=== PATIENT | female | born 1980 | race Caucasian/White ===

== ENCOUNTER → 2023-09-05 06:53 | Outpatient (REF) | payer BC, SELFPAY | LOC: PNTC 06:53 | PROVIDERS: ATTENDING PHYSICIAN Obstetrics & Gynecology | DX: O09.529 Supervision of elderly multigravida, unspecified trimester (principal); O99.210 Obesity complicating pregnancy, unspecified trimester; O09.819 Supervision of pregnancy resulting from assisted reproductive technology, unspecified trimester | CPT/HCPCS: 76811 ==

== ENCOUNTER 2023-09-22 09:38 | Observation (INO) | payer BC, SELFPAY ==
[2023-09-22 10:31] LABS: % Basophils 0.4 % (0-2); % Eosinophils 1.1 % (0-6); % Immature Granulocytes 0.7 % (0-0.5); % Lymphocytes 19.1 % (20.5-51.1); % Monocytes 6.5 % (1.7-9.3); % Neutrophils 72.2 % (42.2-75.2); Absolute Basophils 0.1 10^3/uL (0-0.2); Absolute Eosinophils 0.1 10^3/uL (0-0.7); Absolute Immature Granulocytes 0.1 10^3/uL (0-0.05); Absolute Lymphocytes 2.2 10^3/uL (1.2-3.4); Absolute Monocytes 0.7 10^3/uL (0.1-0.6); Absolute Neutrophils 8.2 10^3/uL (1.4-6.5); Hematocrit 37.5 % (37.0-47.0); Hemoglobin 13.2 g/dL (12.0-16.0); Mean Corp Hgb Conc. 35.2 g/dL (33.0-37.0); Mean Corpuscular Hgb 30.1 pg (27.0-31.0); Mean Corpuscular Volume 85.6 fL (81.0-99.0); Mean Platelet Volume 10.9 fL (7.4-10.4); Nucleated Red Blood Cells % 0 %; Platelet Count 187 10^3/uL (130-400); Red Blood Cell Count 4.38 10^6/uL (4.20-5.40); Red Cell Dist. Width 12.8 % (11.5-14.5); White Blood Cell Count 11.3 10^3/uL (4.8-10.8)
[2023-09-22 10:45] LABS: ALT (SGPT) 25 U/L (0-35); AST (SGOT) 27 U/L (14-36); Albumin 3.4 g/dl (3.5-5.0); Alkaline Phosphatase 67 U/L (38-126); Blood Urea Nitrogen 7 mg/dl (7-17); Calcium 8.9 mg/dl (8.4-10.2); Carbon Dioxide 24 mmol/L (22-30); Chloride 106 mmol/L (98-107); Glucose 79 mg/dl (70-99); Potassium 3.9 mmol/L (3.5-5.1); Sodium 135 mmol/L (135-145); Total Bilirubin 0.4 mg/dl (0.2-1.3); eGFR > 60.00
[2023-09-22 11:03] VITALS: BP 137/57; BMI 35.5
[2023-09-22 11:11] LABS: Protein/creatinine Ratio 0.2; Urine Protein 15 mg/dl
== END 2023-09-22 11:30 | disposition home or self-care (01) ==
LOC: PNTC-IN 09:38
PROVIDERS: Obstetrics & Gynecology; ADMITTING PHYSICIAN Obstetrics & Gynecology
DX: O16.2 Unspecified maternal hypertension, second trimester (principal); Z3A.23 23 weeks gestation of pregnancy
CPT/HCPCS: 80053; 82570; 84156; 85025; G0378

== ENCOUNTER → 2023-10-04 07:19 | Outpatient (REF) | payer BC, SELFPAY | LOC: PNTC 07:19 | PROVIDERS: ATTENDING PHYSICIAN Obstetrics & Gynecology | DX: O99.210 Obesity complicating pregnancy, unspecified trimester (principal); O09.819 Supervision of pregnancy resulting from assisted reproductive technology, unspecified trimester | CPT/HCPCS: 76816 ==

== ENCOUNTER → 2023-10-06 08:50 | Outpatient (REF) | payer BC, SELFPAY ==
--- NOTE | 2023-10-06 10:05 | PN.DIAED06 ---
Meal Plan - Gestational
- Breakfast
Gestational Diabetes Meal Plan Name: 1800 calories
Breakfast - Total Carbohydrate (grams): 30
Breakfast - Starch Carbohydrate: 1
Breakfast - Fruit Carbohydrate: 0
Breakfast - Milk Carbohydrate: 1
Breakfast - Nonstarchy Vegetables: Yes
Breakfast - Meat/Protein: 1
Breakfast - Fat: 2
- Morning Snack
Morning Snack - Total Carbohydrate (grams): 30
Morning Snack - Starch Carbohydrate: 1
Morning Snack - Fruit Carbohydrate: 0
Morning Snack - Milk Carbohydrate: 1
Morning Snack - Nonstarchy Vegetables: Yes
Morning Snack - Meat/Protein: 0.5
Morning Snack - Fat: 0
- Lunch
Lunch - Total Carbohydrate (grams): 45
Lunch - Starch Carbohydrate: 2
Lunch - Fruit Carbohydrate: 1
Lunch - Milk Carbohydrate: 0
Lunch - Nonstarchy Vegetables: Yes
Lunch - Meat/Protein: 2
Lunch - Fat: 1
- Afternoon Snack
Afternoon Snack - Total Carbohydrate (grams): 30
Afternoon Snack - Starch Carbohydrate: 1
Afternoon Snack - Fruit Carbohydrate: 1
Afternoon Snack - Milk Carbohydrate: 0
Afternoon Snack - Nonstarchy Vegetables: Yes
Afternoon Snack - Meat/Protein: 1
Afternoon Snack - Fat: 0
- Dinner
Dinner - Total Carbohydrate (grams): 45
Dinner - Starch Carbohydrate: 2
Dinner - Fruit Carbohydrate: 0
Dinner - Milk Carbohydrate: 1
Dinner - Nonstarchy Vegetables: Yes
Dinner - Meat/Protein: 2
Dinner - Fat: 2
- Evening Snack
Evening Snack - Total Carbohydrate (grams): 30
Evening Snack - Starch Carbohydrate: 1
Evening Snack - Fruit Carbohydrate: 0
Evening Snack - Milk Carbohydrate: 1
Evening Snack - Nonstarchy Vegetables: Yes
Evening Snack - Meat/Protein: 1
Evening Snack - Fat: 1
--- NOTE | 2023-10-06 10:32 | PN.DIAED02 ---
Referral
Referred For: Gestational Diabetes Self-Management Training
PHI Release Authorization Form Signed: Yes
Demographic
(1) Gestational diabetes
Status: Acute Code(s): O24.419 - Gestational diabetes mellitus in , unspecified control
Patient's primary language-: Slovak
Care Plan
- Education Needs
Patient Education Needs: Preconception care//gestational diabetes management
Recommended Diabetes Training Program based on assessment: Gestational Diabetes Management
- Plan of Care
Plan of Care:
Ericka in today for new diagnosis GDM, OGTT 10/03/23 results FBS 117 mg/dl, 1 hr 239 mg/dl, 2 hr 203 mg/dl and 3 hr 128 mg/dl. EDC 01/19/24, sex unknown, IVF after 12 egg retrievals, 3 failed transfer, a miscarriage. Discussed normal glucose metabolism
and the effects /placenta have on this metabolism. She has family history T2DM as well as thyroid disorder, she is aware that having GDM puts her at risk for developing T2DM in the future. Ericka was having difficulty with her insurance in
regards to the preferred glucometer and states she will pay out of pocket. Provided with and instructions given on Contour Next EZ glucometer. Suggest that she compare cost of the test strips for the Contour Next with the [facility] Reli On and get the
one that is most cost effective. Excellent return demonstration with result of 146 mg/dl 2 hr post breakfast of whole grain cereal w/almond milk, coffee w/almond milk creamer.To test blood sugar, FBS and 2 hr pp every meal with expected results of
FBS <95 mg/dl, 2 hr pp <120 mg, if testing 1 hr pp <140 mg/dl. TO call results to Cecy at [facility] every Tuesday, phone number and log sheet provided. Discussed macronutrients and effect each has on BS. Provided w/ 1800 jessica ADA GDM meal
plan and discussed current eating habits. She makes healthy choices and follow a Mediterranean diet for the most part. There are some meals where she will need to consume additional carb, discussed adding fruit or starch to evening meal. Reviewed
reading food labels for the CHO content in regards to serving size. Handout on snack options and 'Choose your food' booklet provided. She is aware to hold off consuming fruit until noon, rationale given.She currently walks 30 minutes every day.
Prior to her IVF journey, she was a runner and looks forward to getting back into her prior health status. Ericka is aware to contact me with any questions or if insulin in required. No need to call in RX as she will be paying out of pocket.
== END ==
LOC: DES 08:50
PROVIDERS: ATTENDING PHYSICIAN Obstetrics & Gynecology
DX: O24.419 Gestational diabetes mellitus in pregnancy, unspecified control (principal)
CPT/HCPCS: 99078

== ENCOUNTER → 2023-10-13 10:00 | Outpatient (REF) | payer BC, SELFPAY ==
--- NOTE | 2023-10-17 17:07 | PTCARENOTE ---
Ericka in today 10/13/23 for insulin instructions, all FBS elevated (100-117 mg/dl) as well as 50% of post meal results (124-146)are elevated. To start NPH 6 units with breakfast and NPH 10 units at HS. Discussed onset, peak and duration as well as
symptoms and treatment of hypoglycemia. Instructions with good practice return demonstration using insulin pen. Aware to gently mix insulin pen, clean top of pen, attach needle, prime, reset to zero, dial dose , inject and hold in place for a count
of 10. To inject in outer thigh. Recommend testing tonight at [id number] to assess for hypoglycemia. Ericka may require and has picked up Humalog insulin, she will hold starting this until she speaks with Cecy on Tuesday11/17/23. Discussed onset, peak
and duration of rapid acting insulin with best practice to test blood sugar, inject Humalog and eat in 15 minutes. She feels comfortable injecting herself and will do what ever she needs.
== END ==
LOC: DES 10:00
PROVIDERS: ATTENDING PHYSICIAN Obstetrics & Gynecology
DX: O24.419 Gestational diabetes mellitus in pregnancy, unspecified control (principal)
CPT/HCPCS: 99078

== ENCOUNTER → 2023-11-01 07:16 | Outpatient (REF) | payer BC, SELFPAY | LOC: PNTC 07:16 | PROVIDERS: ATTENDING PHYSICIAN Obstetrics & Gynecology | DX: O09.819 Supervision of pregnancy resulting from assisted reproductive technology, unspecified trimester (principal); O99.210 Obesity complicating pregnancy, unspecified trimester | CPT/HCPCS: 76816 ==

== ENCOUNTER 2023-11-25 11:12 | Inpatient (IN) | payer BC, SELFPAY ==
[2023-11-25 11:52] LABS: % Basophils 0.4 % (0-2); % Eosinophils 1.2 % (0-6); % Immature Granulocytes 0.5 % (0-0.5); % Lymphocytes 17.9 % (20.5-51.1); % Monocytes 7.1 % (1.7-9.3); % Neutrophils 72.9 % (42.2-75.2); Absolute Eosinophils 0.1 10^3/uL (0-0.7); Absolute Immature Granulocytes 0.1 10^3/uL (0-0.05); Absolute Monocytes 0.8 10^3/uL (0.1-0.6); Absolute Neutrophils 8.1 10^3/uL (1.4-6.5); Hematocrit 38.1 % (37.0-47.0); Hemoglobin 13.5 g/dL (12.0-16.0); Mean Corp Hgb Conc. 35.4 g/dL (33.0-37.0); Mean Corpuscular Hgb 30.6 pg (27.0-31.0); Mean Corpuscular Volume 86.4 fL (81.0-99.0); Mean Platelet Volume 11.1 fL (7.4-10.4); Nucleated Red Blood Cells % 0 %; Platelet Count 180 10^3/uL (130-400); Red Blood Cell Count 4.41 10^6/uL (4.20-5.40); Red Cell Dist. Width 13.1 % (11.5-14.5); White Blood Cell Count 11.1 10^3/uL (4.8-10.8)
[2023-11-25 12:07] LABS: ALT (SGPT) 31 U/L (0-35); AST (SGOT) 38 U/L (14-36); Albumin 3.6 g/dl (3.5-5.0); Alkaline Phosphatase 96 U/L (38-126); Blood Urea Nitrogen 11 mg/dl (7-17); Calcium 9.9 mg/dl (8.4-10.2); Carbon Dioxide 24 mmol/L (22-30); Chloride 107 mmol/L (98-107); Glucose 72 mg/dl (70-99); Sodium 135 mmol/L (135-145); Total Bilirubin 0.4 mg/dl (0.2-1.3); Total Protein 6.3 g/dl (6.3-8.2); Uric Acid 6.2 mg/dl (2.5-6.2); eGFR > 60.00
[2023-11-25] MEDS: APRESOLINE 10 MG IV ×2 (12:29→13:04)
[2023-11-25 12:33] VITALS: BP 160/81; BMI 37.4
[2023-11-25 12:59] LABS: Urine Albumin Negative (Neg - Trace); Urine Bilirubin Negative (Negative); Urine Character Clear (Clear); Urine Color Yellow; Urine Glucose Negative (Negative); Urine Ketone 1+ (Negative); Urine Leukocyte Negative (Negative); Urine Nitrite Negative (Negative); Urine Occult Blood Negative (Negative); Urine Specific Gravity 1.015 (<1.030); Urine Urobilinogen Negative (Neg - 1+); Urine pH 6.5 (5.0-9.0)
[2023-11-25 13:22] LABS: Protein/creatinine Ratio 0.3; Urine Protein 23 mg/dl
[2023-11-25] MEDS: MAGNESIUM SULFATE 100 IV (13:51)
[2023-11-25] MEDS: MAGNESIUM SULFATE 40 GRAM 1000 IV (14:16)
[2023-11-25] MEDS: PROCARDIA XL (EXTENDED RELEASE) 30 MG PO (14:16)
[2023-11-25] MEDS: CELESTONE SOLUSPAN 2 MG IM (14:29)
--- NOTE | 2023-11-25 15:15 | CON.NEO ---
Consultation
-
Date/Time Consultation Requested: 11/25/2023 @1400
Date/Time Consultation Performed: 11/25/2023 @1445
Requesting Provider: Toro Herring
Performing Provider: Jenny Asher
Reason for Consultation: Pre-e
Consultation - Neonatology
Maternal Labs
Blood Type: A Positive
Antibody Screen: Negative
RPR: Nonreactive
Rubella: Immune
Hep B S Ag: Negative
Hep C: Negative
HIV: Nonreactive
Group B Strep: Unknown
Chlamydia/GC: Negative
Consult
43 year old admitted for HTN.
Past history significant for karine's thyroiditis, GDM on insulin, IVF .
Mother currently on magnesium, received hydralazine and one dose of betamethasone.
Mother plans on .
Sex of is unknown.
Mother only was present for the consult. Mother aware that if FOB has questions, I can return to discuss.
Points discussed at consult:
- Management at delivery including the possibility of CPAP/intubation/surfactant discussed
- Respiratory: RDS possibility with possibility of worsening for 24-48 hrs, management including CPAP/surfactant/ventilator support may be required
- Nutrition: Hypoglycemia, need for IV fluids, gradual feed advance, Gavage feeding, importance of colostrum feeding, initiation of expression of colostrum within 3-4 hours, availability of donor milk, safety fo donor milk etc. were discussed.
- Procedures: Intubation, CPAP, IV placement, blood tests, umbilical arterial or venous lines, gavage feedings were discussed
- CVS: possibility of PDA not discussed in detail at this time
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
- Jaundice possibility and need for phototherapy discussed
- Family Centered Care: Discussed FCC with emphasis on parental participation during sign off and during management rounds and is encouraged. Availability of james eyes camera also discussed
Mom was given the opportunity to ask questions throughout and open invitation to call if any questions come as they absorb all the information given so far.
Mother is hopeful to continue until 35 weeks.
Face to Face Time
Total [id number] Time (in Minutes): 30
Attending Package Pick Up: Jenny Asher MD
Package Pick Up
[2023-11-25 15:23] LABS: Glucose - Point of Care 79 mg/dl (70-99)
[2023-11-25] MEDS: LR 1000 IV (15:28)
[2023-11-25] MEDS: KCL 1010 MEQ IV (15:48)
[2023-11-25 17:34] LABS: Glucose - Point of Care 130 mg/dl (70-99)
[2023-11-25 20:26] LABS: Glucose - Point of Care 194 mg/dl (70-99)
[2023-11-25] MEDS: HUMULIN N KWIKPEN 16 UNITS SC (21:58)
[2023-11-25 22:00] LABS: Glucose - Point of Care 189 mg/dl (70-99)
[2023-11-26] MEDS: TYLENOL 650 MG PO (01:01)
[2023-11-26] MEDS: KCL 1010 MEQ IV (05:18)
[2023-11-26] MEDS: SYNTHROID 50 MCG PO (05:33)
[2023-11-26 05:34] LABS: Glucose - Point of Care 189 mg/dl (70-99)
[2023-11-26] MEDS: HUMULIN N KWIKPEN 6 UNITS SC (05:39)
[2023-11-26 05:47] LABS: Hematocrit 37.9 % (37.0-47.0); Hemoglobin 13.3 g/dL (12.0-16.0); Mean Corp Hgb Conc. 35.1 g/dL (33.0-37.0); Mean Corpuscular Hgb 30.6 pg (27.0-31.0); Mean Corpuscular Volume 87.3 fL (81.0-99.0); Mean Platelet Volume 11.1 fL (7.4-10.4); Platelet Count 200 10^3/uL (130-400); Red Blood Cell Count 4.34 10^6/uL (4.20-5.40); Red Cell Dist. Width 13.2 % (11.5-14.5); White Blood Cell Count 14.7 10^3/uL (4.8-10.8)
[2023-11-26 06:10] LABS: ALT (SGPT) 30 U/L (0-35); AST (SGOT) 32 U/L (14-36); Albumin 3.4 g/dl (3.5-5.0); Alkaline Phosphatase 107 U/L (38-126); Blood Urea Nitrogen 8 mg/dl (7-17); Calcium 7.7 mg/dl (8.4-10.2); Carbon Dioxide 19 mmol/L (22-30); Chloride 107 mmol/L (98-107); Estimated Creatinine Clearance > 125 ml/min; Glucose 178 mg/dl (70-99); Potassium 3.3 mmol/L (3.5-5.1); Sodium 132 mmol/L (135-145); Total Bilirubin 0.4 mg/dl (0.2-1.3); Total Protein 6.1 g/dl (6.3-8.2); eGFR > 60.00
[2023-11-26] MEDS: MAGNESIUM SULFATE 40 GRAM 1000 IV (08:30)
[2023-11-26] MEDS: PRENATAL PLUS 1 TABLET PO (08:30)
[2023-11-26] MEDS: LOW STRENGTH ASPIRIN 81 MG PO (08:30)
[2023-11-26 09:42] LABS: Glucose - Point of Care 228 mg/dl (70-99)
[2023-11-26 11:02] LABS: Glucose - Point of Care 196 mg/dl (70-99)
[2023-11-26] MEDS: NOVOLOG FLEXPEN-LOW RESISTANCE 1 UNITS SC (11:12)
[2023-11-26] MEDS: CELESTONE SOLUSPAN 2 MG IM (14:18)
[2023-11-26] MEDS: PROCARDIA XL (EXTENDED RELEASE) 30 MG PO (14:18)
[2023-11-26] MEDS: NOVOLOG FLEXPEN 6 UNITS SC (14:30)
[2023-11-26 14:35] LABS: Glucose - Point of Care 245 mg/dl (70-99)
[2023-11-26 18:05] LABS: Glucose - Point of Care 275 mg/dl (70-99)
[2023-11-26] MEDS: NOVOLOG FLEXPEN 10 UNITS SC (18:10)
[2023-11-26] MEDS: NOVOLOG FLEXPEN-LOW RESISTANCE SC (18:24)
[2023-11-26 20:04] LABS: Glucose - Point of Care 288 mg/dl (70-99)
[2023-11-26] MEDS: NOVOLOG FLEXPEN 8 UNITS SC (21:02)
[2023-11-26 22:08] LABS: Glucose - Point of Care 280 mg/dl (70-99)
[2023-11-26] MEDS: HUMULIN N KWIKPEN 18 UNITS SC (22:30)
[2023-11-27] MEDS: TYLENOL 650 MG PO ×2 (02:07→19:46)
[2023-11-27] MEDS: COMPAZINE 10 MG IV (04:12)
[2023-11-27] MEDS: BENADRYL 50 MG PO (04:12)
[2023-11-27 04:19] LABS: Glucose - Point of Care 215 mg/dl (70-99)
[2023-11-27 04:20] LABS: Hematocrit 32.9 % (37.0-47.0); Hemoglobin 12.1 g/dL (12.0-16.0); Mean Corp Hgb Conc. 36.8 g/dL (33.0-37.0); Mean Corpuscular Hgb 30.9 pg (27.0-31.0); Mean Corpuscular Volume 84.1 fL (81.0-99.0); Mean Platelet Volume 11.5 fL (7.4-10.4); Platelet Count 196 10^3/uL (130-400); Red Blood Cell Count 3.91 10^6/uL (4.20-5.40); Red Cell Dist. Width 13.5 % (11.5-14.5); White Blood Cell Count 18.1 10^3/uL (4.8-10.8)
[2023-11-27 04:42] LABS: ALT (SGPT) 23 U/L (0-35); AST (SGOT) 25 U/L (14-36); Albumin 3.2 g/dl (3.5-5.0); Alkaline Phosphatase 100 U/L (38-126); Blood Urea Nitrogen 9 mg/dl (7-17); Calcium 8.1 mg/dl (8.4-10.2); Carbon Dioxide 20 mmol/L (22-30); Chloride 109 mmol/L (98-107); Estimated Creatinine Clearance > 125 ml/min; Glucose 204 mg/dl (70-99); Potassium 3.3 mmol/L (3.5-5.1); Sodium 135 mmol/L (135-145); Total Bilirubin 0.4 mg/dl (0.2-1.3); Total Protein 5.8 g/dl (6.3-8.2); eGFR > 60.00
[2023-11-27] MEDS: SYNTHROID 50 MCG PO (05:49)
[2023-11-27] MEDS: HUMULIN N KWIKPEN 8 UNITS SC ×2 (05:52→09:48)
[2023-11-27 05:53] LABS: Glucose - Point of Care 203 mg/dl (70-99)
[2023-11-27 06:09] LABS: Magnesium 2.5 mg/dl (1.6-2.3); Phosphorus 2.9 mg/dl (2.5-4.5)
[2023-11-27] MEDS: NOVOLOG FLEXPEN 8 UNITS SC (07:13)
[2023-11-27] MEDS: NOVOLOG FLEXPEN-LOW RESISTANCE SC (07:17)
[2023-11-27] MEDS: HUMULIN N KWIKPEN SC (07:17)
[2023-11-27] MEDS: LOW STRENGTH ASPIRIN 81 MG PO (08:02)
[2023-11-27] MEDS: TYLENOL 1000 MG PO (08:02)
[2023-11-27] MEDS: PRENATAL PLUS 1 TABLET PO (08:02)
[2023-11-27 09:08] LABS: Glucose - Point of Care 248 mg/dl (70-99)
[2023-11-27] MEDS: TRANDATE 200 MG PO ×2 (09:48→19:49)
[2023-11-27 12:05] LABS: Glucose - Point of Care 192 mg/dl (70-99)
[2023-11-27] MEDS: NOVOLOG FLEXPEN 12 UNITS SC (12:07)
[2023-11-27 14:18] LABS: Glucose - Point of Care 215 mg/dl (70-99)
[2023-11-27] MEDS: NOVOLOG FLEXPEN 6 UNITS SC (14:28)
[2023-11-27 15:31] LABS: Glucose - Point of Care 199 mg/dl (70-99)
[2023-11-27 17:51] LABS: Glucose - Point of Care 238 mg/dl (70-99)
[2023-11-27] MEDS: NOVOLOG FLEXPEN SC (18:01)
[2023-11-27] MEDS: NOVOLOG FLEXPEN 16 UNITS SC (18:04)
[2023-11-27 20:11] LABS: Glucose - Point of Care 183 mg/dl (70-99)
[2023-11-27] MEDS: REGLAN 10 MG IV (20:58)
[2023-11-27] MEDS: HUMULIN N KWIKPEN 24 UNITS SC (22:04)
[2023-11-27 22:11] LABS: Glucose - Point of Care 211 mg/dl (70-99)
--- NOTE | 2023-11-27 22:57 | W.PN.UPDATE ---
Update Note
Progress Note Update
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
Throughout the day, pt has continued to have a mild MORELOS, mostly rated 2/10, frontal near right orbit. Has not had any visual sx or RUQ pain, CP or SOB.
She did get some improvement in the wee hours of this morning with Benadryl/compazine, but the benadryl made her feel jittery initially after receiving it.
BP med was switched from PRocardia XL to Labetalol 200mg BID this morning due to concern that that Procardia was contributing to her MORELOS. BPs have remained well controlled with systolics mostly in the normal range throughout the course of the day
(153 systolic only noted just at 1999 when patient was due for her Labetalol; once labetalol was received as scheduled, BP was 125/50s.
This evening, patient's MORELOS became a 4/10, but responded to Tylenol 650mg, coming back down to 2/10. Reglan 10mg IV was given subsequently, but did not make any further improvement in the MORELOS. Pt is admittedly exhausted and feels that is also a
contributing factor.
Labs were repeated this morning and were unremarkable.
Patient's exam has also remained unremarkable with normal neuro exam and DTRs +1 to +2.
FHT cat I.
Also, pt has A2GDM and glucose control has been challenging since administration of BTMZ for FLM. Goal has been to keep glucose <200, but we have struggled to do so. Multiple adjustments have been made in her insulin regimen, the latest orders are
for:
AM: 16units NPH, PM: 24units NPH, and 12u prior to each meal.
Due to glucose >200, in addition to the above, the patient did receive an extra 6units reg insulin after lunchtime and an additional 4units reg insulin prior to dinner.
Her postprandial glucose after dinner was 183 and her HS glucose was 211.
A/P 43yo at 32+3wks with
1) pre-eclampsia with severe features, based on severe range BPs at time of admission 11/24.
Mild MORELOS, no other symptoms. BPs well-controlled on LAbetalol 200mg BID. Tox labs unremarkable, other than urine pr:cr 0.3. Benign neuro exam.
FHT cat I.
Steroid complete, 11/27/23.
-Continue expectant mgmt with close monitoring for worsening sx, uncontrolled BPs despite intervention, significant lab findings or exam findings
-If delivery becomes indicated, will need to be as long as fetus remains breech
-venous foot pumps while in bed
-CEFM/toco for now
-Tylenol, reglan prn headache. Can also try Ambien 5mg to help pt with sleep (ordered)
-qAM labs
2) A2GDM:
Control challenging since BTMZ course
-Current insulin regimen: AM: 16units NPH, PM: 24units NPH, and 12u prior to each meal.
-Continue to adjust insulin regimen and use sliding scale as needed to achieve glucose <200
-Diabetic diet
I consulted with M, Dr. Bueno, this morning regarding patient management plan, and he was in agreement with above.
This evening, I spoke to him again about the patient's status, notably the patient's headache. He agrees to plan as outlined above.
Milly, DO
[2023-11-27] MEDS: AMBIEN 5 MG PO (23:05)
[2023-11-28] MEDS: TYLENOL 975 MG PO ×4 (05:18→23:39)
[2023-11-28 05:45] LABS: Glucose - Point of Care 108 mg/dl (70-99)
[2023-11-28] MEDS: SYNTHROID 50 MCG PO (05:49)
[2023-11-28] MEDS: FLEXERIL 5 MG PO (05:49)
[2023-11-28 05:57] LABS: Hematocrit 32.5 % (37.0-47.0); Hemoglobin 11.3 g/dL (12.0-16.0); Mean Corp Hgb Conc. 34.8 g/dL (33.0-37.0); Mean Corpuscular Hgb 30.2 pg (27.0-31.0); Mean Corpuscular Volume 86.9 fL (81.0-99.0); Platelet Count 176 10^3/uL (130-400); Red Blood Cell Count 3.74 10^6/uL (4.20-5.40); Red Cell Dist. Width 13.6 % (11.5-14.5); White Blood Cell Count 13.1 10^3/uL (4.8-10.8)
[2023-11-28 06:17] LABS: ALT (SGPT) 23 U/L (0-35); AST (SGOT) 24 U/L (14-36); Albumin 2.8 g/dl (3.5-5.0); Alkaline Phosphatase 79 U/L (38-126); Blood Urea Nitrogen 9 mg/dl (7-17); Calcium 8.3 mg/dl (8.4-10.2); Carbon Dioxide 24 mmol/L (22-30); Chloride 110 mmol/L (98-107); Estimated Creatinine Clearance > 125 ml/min; Glucose 101 mg/dl (70-99); Potassium 2.9 mmol/L (3.5-5.1); Sodium 136 mmol/L (135-145); Total Bilirubin 0.2 mg/dl (0.2-1.3); Total Protein 5.3 g/dl (6.3-8.2); eGFR > 60.00
[2023-11-28] MEDS: HUMULIN N KWIKPEN 16 UNITS SC (06:48)
[2023-11-28] MEDS: LOW STRENGTH ASPIRIN 81 MG PO (08:04)
[2023-11-28] MEDS: PRENATAL PLUS 1 TABLET PO (08:04)
[2023-11-28] MEDS: TRANDATE PO (08:04)
[2023-11-28] MEDS: NOVOLOG FLEXPEN 12 UNITS SC (08:08)
[2023-11-28 09:46] LABS: Glucose - Point of Care 103 mg/dl (70-99)
[2023-11-28 11:51] LABS: Glucose - Point of Care 79 mg/dl (70-99)
[2023-11-28 14:33] LABS: Glucose - Point of Care 155 mg/dl (70-99)
--- NOTE | 2023-11-28 14:54 | PN.DE.MGMTRT ---
Insulin Management
- -
11/28/2023 Diabetes Management Consult
Patient admitted 11/24 with headache, HTN, pre eclampsia. Patient is EDC 01/19/24, will have next . PMH gestational diabetes diagnosed approximately 6 weeks ago being seen at [facility]. Has been taking Humulin N 14
units @ HS with 6 units in AM.
Patient is awake alert and oriented, able to discuss diabetes treatment.
Patient has received steroids, glucose trended up. Current Novolin N doses 24 units @ hs with 16 units in AM with novolog ss . A dose of Regular insulin was administered this AM
Will start AC novolog 4 units with low corrective insulin. Glucose to be monitored before each meal , 2 hours pp and hs. Will reassess in AM for needed adjustments to insulin regimen.
Patient is very receptive, @ bedside.
Diabetes History
- -
Type of Diabetes: Gestational
Pre-Admission Diabetes Regimen
11/28/23
05:45
Creatinine 0.6
Insulin Pump Settings
IP Diabetes Regimen
11/27/23 11/27/23 11/27/23
15:28 17:46 20:04
Glucose
POC Glucose 199 H 238 H 183 H
11/27/23 11/28/23 11/28/23
22:02 05:43 05:45
Glucose 101 H
POC Glucose 211 H 108 H
11/28/23 11/28/23 11/28/23
09:44 11:50 14:31
Glucose
POC Glucose 103 H 79 155 H
Patient Education
[2023-11-28] MEDS: TRANDATE 100 MG PO ×2 (15:01→22:18)
[2023-11-28] MEDS: NOVOLOG FLEXPEN SC (17:06)
[2023-11-28] MEDS: FLUSH (NSS) 1 FLUSH IV (17:43)
[2023-11-28 18:00] LABS: Glucose - Point of Care 94 mg/dl (70-99)
[2023-11-28] MEDS: NOVOLOG FLEXPEN 4 UNITS SC (18:00)
[2023-11-28 20:32] LABS: Glucose - Point of Care 116 mg/dl (70-99)
[2023-11-28 22:08] LABS: Glucose - Point of Care 104 mg/dl (70-99)
[2023-11-28] MEDS: HUMULIN N KWIKPEN 24 UNITS SC (22:19)
[2023-11-28] MEDS: AMBIEN 5 MG PO (23:41)
[2023-11-29] MEDS: SYNTHROID 50 MCG PO (06:03)
[2023-11-29 06:44] LABS: Glucose - Point of Care 77 mg/dl (70-99)
[2023-11-29 06:53] LABS: Hematocrit 32.1 % (37.0-47.0); Hemoglobin 11.4 g/dL (12.0-16.0); Mean Corp Hgb Conc. 35.5 g/dL (33.0-37.0); Mean Corpuscular Hgb 31.1 pg (27.0-31.0); Mean Corpuscular Volume 87.5 fL (81.0-99.0); Mean Platelet Volume 11.4 fL (7.4-10.4); Platelet Count 153 10^3/uL (130-400); Red Blood Cell Count 3.67 10^6/uL (4.20-5.40); Red Cell Dist. Width 13.4 % (11.5-14.5); White Blood Cell Count 10.8 10^3/uL (4.8-10.8)
[2023-11-29] MEDS: LOW STRENGTH ASPIRIN 81 MG PO (07:22)
[2023-11-29] MEDS: PRENATAL PLUS 1 TABLET PO (07:22)
[2023-11-29] MEDS: TRANDATE 100 MG PO ×3 (07:22→22:07)
[2023-11-29] MEDS: HUMULIN N KWIKPEN 16 UNITS SC (07:26)
[2023-11-29] MEDS: TYLENOL 975 MG PO ×3 (07:29→22:52)
[2023-11-29 07:44] LABS: ALT (SGPT) 24 U/L (0-35); AST (SGOT) 28 U/L (14-36); Albumin 2.7 g/dl (3.5-5.0); Alkaline Phosphatase 82 U/L (38-126); Blood Urea Nitrogen 7 mg/dl (7-17); Calcium 8.3 mg/dl (8.4-10.2); Carbon Dioxide 24 mmol/L (22-30); Chloride 108 mmol/L (98-107); Estimated Creatinine Clearance > 125 ml/min; Glucose 67 mg/dl (70-99); Potassium 2.9 mmol/L (3.5-5.1); Sodium 134 mmol/L (135-145); Total Bilirubin 0.2 mg/dl (0.2-1.3); Total Protein 5.1 g/dl (6.3-8.2); eGFR > 60.00
[2023-11-29 08:45] LABS: Glucose - Point of Care 90 mg/dl (70-99)
[2023-11-29] MEDS: NOVOLOG FLEXPEN 4 UNITS SC ×3 (08:50→17:00)
[2023-11-29 09:22] LABS: Glycohemoglobin (HgbA1c) 5.7 % (4.0-5.6)
[2023-11-29 10:45] LABS: Glucose - Point of Care 109 mg/dl (70-99)
[2023-11-29] MEDS: KCL 40 MEQ PO (11:19)
--- NOTE | 2023-11-29 12:13 | PN.DE.MGMTRT ---
Insulin Management
- -
11/29/2023 Diabetes Management Consult Follow up
Patient admitted 11/24 with headache, HTN, pre eclampsia. Patient is EDC 01/19/24, will have next , 12/08/2023. PMH gestational diabetes diagnosed approximately 6 weeks ago being seen at [facility]. Has been taking
Humulin N 14 units @ HS with 6 units in AM.
Patient is awake alert and oriented, able to discuss diabetes treatment.
Patient has received steroids, glucose trended up. Current Novolin N doses 24 units @ hs with 16 units in AM with novolog ss . A dose of Regular insulin was administered this AM. Fasting glucose this AM 67, will reduce hs NPH to 22 units.
Will continue AC novolog 4 units with low corrective insulin. Glucose to be monitored before each meal , 2 hours pp and hs. Will reassess in AM for needed adjustments to insulin regimen.
Patient is very receptive, states she is feeling much better, headache is diminished.
Diabetes History
- -
Type of Diabetes: Gestational
Pre-Admission Diabetes Regimen
11/29/23
06:18
Creatinine 0.6
Lab Results
Hemoglobin A1c 5.7 % (4.0-5.6) H 11/29/23 06:18
Insulin Pump Settings
IP Diabetes Regimen
11/28/23 11/28/23 11/28/23
14:31 17:59 20:29
Glucose
POC Glucose 155 H 94 116 H
11/28/23 11/29/23 11/29/23
22:06 06:18 06:42
Glucose 67 L
POC Glucose 104 H 77
11/29/23 11/29/23
08:43 10:43
Glucose
POC Glucose 90 109 H
Patient Education
[2023-11-29 12:14] LABS: Glucose - Point of Care 74 mg/dl (70-99)
[2023-11-29 15:17] LABS: Glucose - Point of Care 114 mg/dl (70-99)
[2023-11-29 16:29] LABS: Potassium 3.4 mmol/L (3.5-5.1)
[2023-11-29 17:03] LABS: Glucose - Point of Care 105 mg/dl (70-99)
[2023-11-29 19:19] LABS: Glucose - Point of Care 135 mg/dl (70-99)
[2023-11-29] MEDS: HUMULIN N KWIKPEN 22 UNITS SC (22:13)
[2023-11-29 22:17] LABS: Glucose - Point of Care 94 mg/dl (70-99)
[2023-11-30] MEDS: SYNTHROID 50 MCG PO (06:23)
[2023-11-30 06:24] LABS: Glucose - Point of Care 76 mg/dl (70-99)
[2023-11-30 06:40] LABS: Hematocrit 32.6 % (37.0-47.0); Hemoglobin 11.6 g/dL (12.0-16.0); Mean Corp Hgb Conc. 35.6 g/dL (33.0-37.0); Mean Corpuscular Hgb 30.6 pg (27.0-31.0); Mean Platelet Volume 11.3 fL (7.4-10.4); Platelet Count 171 10^3/uL (130-400); Red Blood Cell Count 3.79 10^6/uL (4.20-5.40); Red Cell Dist. Width 13.4 % (11.5-14.5)
[2023-11-30 07:06] LABS: ALT (SGPT) 23 U/L (0-35); AST (SGOT) 28 U/L (14-36); Albumin 2.8 g/dl (3.5-5.0); Alkaline Phosphatase 84 U/L (38-126); Blood Urea Nitrogen 9 mg/dl (7-17); Calcium 8.2 mg/dl (8.4-10.2); Carbon Dioxide 22 mmol/L (22-30); Chloride 109 mmol/L (98-107); Estimated Creatinine Clearance > 125 ml/min; Glucose 64 mg/dl (70-99); Sodium 137 mmol/L (135-145); Total Bilirubin 0.3 mg/dl (0.2-1.3); Total Protein 5.2 g/dl (6.3-8.2); eGFR > 60.00
--- NOTE | 2023-11-30 07:38 | PN.DE.MGMTRT ---
Insulin Management
- -
11/30/2023 Diabetes Management F/U:
43 year old female EDC 01/19/24, admitted on 11/24 with headache, HTN due to pre eclampsia, scheduled for on 12/08/2023.
PMH includes: Gestational Diabetes Dx ~ 6 weeks ago being seen at [facility]. 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
Patient is awake alert and oriented, offers no complaints, reports that headache has subsided, able to discuss diabetes treatment.
Off Steroids. States that her stress level has significantly gone down knowing that she is being monitored in a safe environment.
Her NPH HS dose was reduced to 22 units yesterday due to hypoglycemia. FBG 64(V) this AM, will further reduce hs NPH to 20 units.
Will continue AC NovoLog 4 units with low corrective insulin. Glucose to be monitored before each meal , 2 hours pp and hs.
Will reassess in AM for needed adjustments to insulin regimen.
Diabetes History
- -
Type of Diabetes: Gestational
Pre-Admission Diabetes Regimen
11/29/23 11/30/23
06:18 06:14
Creatinine 0.6 0.5 L
Lab Results
Hemoglobin A1c 5.7 % (4.0-5.6) H 11/29/23 06:18
Insulin Pump Settings
IP Diabetes Regimen
11/29/23 11/29/23 11/29/23
06:18 08:43 10:43
Glucose 67 L
POC Glucose 90 109 H
11/29/23 11/29/23 11/29/23
12:10 15:12 16:58
Glucose
POC Glucose 74 114 H 105 H
11/29/23 11/29/23 11/30/23
19:16 22:15 06:14
Glucose 64 L
POC Glucose 135 H 94
11/30/23
06:21
Glucose
POC Glucose 76
Patient Education
[2023-11-30] MEDS: LOW STRENGTH ASPIRIN 81 MG PO (07:53)
[2023-11-30] MEDS: PRENATAL PLUS 1 TABLET PO (07:53)
[2023-11-30] MEDS: TRANDATE 100 MG PO ×3 (07:54→23:08)
[2023-11-30] MEDS: KCL 20 MEQ PO (07:54)
[2023-11-30] MEDS: HUMULIN N KWIKPEN 16 UNITS SC (07:55)
[2023-11-30] MEDS: NOVOLOG FLEXPEN 4 UNITS SC ×3 (07:56→16:34)
[2023-11-30 07:58] LABS: Glucose - Point of Care 109 mg/dl (70-99)
[2023-11-30 10:25] LABS: Glucose - Point of Care 85 mg/dl (70-99)
[2023-11-30 11:50] LABS: Glucose - Point of Care 74 mg/dl (70-99)
[2023-11-30 14:35] LABS: Glucose - Point of Care 87 mg/dl (70-99)
[2023-11-30 17:13] LABS: Glucose - Point of Care 105 mg/dl (70-99)
[2023-11-30 19:36] LABS: Glucose - Point of Care 136 mg/dl (70-99)
[2023-11-30 22:11] LABS: Glucose - Point of Care 96 mg/dl (70-99)
[2023-11-30] MEDS: HUMULIN N KWIKPEN 20 UNITS SC (22:35)
[2023-12-01] MEDS: SYNTHROID 50 MCG PO (06:14)
[2023-12-01 06:25] LABS: Hematocrit 32.9 % (37.0-47.0); Hemoglobin 11.7 g/dL (12.0-16.0); Mean Corp Hgb Conc. 35.6 g/dL (33.0-37.0); Mean Platelet Volume 10.9 fL (7.4-10.4); Platelet Count 172 10^3/uL (130-400); Red Blood Cell Count 3.78 10^6/uL (4.20-5.40); Red Cell Dist. Width 13.5 % (11.5-14.5); White Blood Cell Count 10.7 10^3/uL (4.8-10.8)
[2023-12-01 06:59] LABS: ALT (SGPT) 23 U/L (0-35); AST (SGOT) 29 U/L (14-36); Albumin 2.8 g/dl (3.5-5.0); Alkaline Phosphatase 89 U/L (38-126); Blood Urea Nitrogen 9 mg/dl (7-17); Calcium 8.5 mg/dl (8.4-10.2); Carbon Dioxide 21 mmol/L (22-30); Chloride 109 mmol/L (98-107); Estimated Creatinine Clearance > 125 ml/min; Glucose 73 mg/dl (70-99); Potassium 3.4 mmol/L (3.5-5.1); Sodium 136 mmol/L (135-145); Total Bilirubin 0.3 mg/dl (0.2-1.3); Total Protein 5.4 g/dl (6.3-8.2); eGFR > 60.00
[2023-12-01 07:35] LABS: Glucose - Point of Care 70 mg/dl (70-99)
[2023-12-01] MEDS: LOW STRENGTH ASPIRIN 81 MG PO (07:54)
[2023-12-01] MEDS: PRENATAL PLUS 1 TABLET PO (07:54)
[2023-12-01] MEDS: TRANDATE 100 MG PO ×3 (07:55→22:28)
[2023-12-01] MEDS: KCL 20 MEQ PO (07:55)
[2023-12-01] MEDS: HUMULIN N KWIKPEN 16 UNITS SC (08:00)
[2023-12-01] MEDS: NOVOLOG FLEXPEN SC (08:09)
[2023-12-01] MEDS: NOVOLOG FLEXPEN 4 UNITS SC ×3 (08:28→17:38)
--- NOTE | 2023-12-01 08:33 | PN.DE.MGMTRT ---
Insulin Management
- -
12/01/2023 Diabetes Management Follow up:
43 year old female EDC 01/19/24, admitted on 11/24 with headache, HTN due to pre eclampsia, scheduled for on 12/08/2023.
PMH includes: Gestational Diabetes Dx ~ 6 weeks ago being seen at [facility]. 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
Patient is awake alert and oriented, oob ambulating in rubin, offers no complaints, able to discuss diabetes treatment.
States that her stress level has significantly gone down knowing that she is being monitored in a safe environment. She is very amenable to treatment.
Her NPH HS dose was reduced to 20 units yesterday due to FBG 64. Fasting glucose this AM 73 venous, 70 POC. Will make no change to insulin regimen continue Novolin N 16 units in AM and 20 units @ HS with AC NovoLog 4 units with low corrective
insulin. Glucose to be monitored before each meal and hs.
Will reassess in AM for needed adjustments to insulin regimen.
Discussed insulin administration with patient and patients nurse.
Diabetes History
- -
Type of Diabetes: Gestational
Pre-Admission Diabetes Regimen
12/01/23
06:05
Creatinine 0.5 L
Lab Results
Hemoglobin A1c 5.7 % (4.0-5.6) H 11/29/23 06:18
Insulin Pump Settings
IP Diabetes Regimen
11/30/23 11/30/23 11/30/23
10:24 11:45 14:32
Glucose
POC Glucose 85 74 87
11/30/23 11/30/23 11/30/23
17:11 19:35 22:09
Glucose
POC Glucose 105 H 136 H 96
12/01/23 12/01/23
06:05 07:33
Glucose 73
POC Glucose 70
Patient Education
[2023-12-01 11:29] LABS: Glucose - Point of Care 79 mg/dl (70-99)
[2023-12-01 17:41] LABS: Glucose - Point of Care 107 mg/dl (70-99)
[2023-12-01 22:31] LABS: Glucose - Point of Care 115 mg/dl (70-99)
[2023-12-01] MEDS: HUMULIN N KWIKPEN 20 UNITS SC (22:35)
[2023-12-02] MEDS: SYNTHROID 50 MCG PO (06:06)
[2023-12-02 06:24] LABS: Hemoglobin 11.6 g/dL (12.0-16.0); Mean Corp Hgb Conc. 35.2 g/dL (33.0-37.0); Mean Corpuscular Hgb 30.2 pg (27.0-31.0); Mean Corpuscular Volume 85.9 fL (81.0-99.0); Platelet Count 175 10^3/uL (130-400); Red Blood Cell Count 3.84 10^6/uL (4.20-5.40); Red Cell Dist. Width 13.3 % (11.5-14.5); White Blood Cell Count 10.9 10^3/uL (4.8-10.8)
[2023-12-02 07:03] LABS: ALT (SGPT) 25 U/L (0-35); AST (SGOT) 29 U/L (14-36); Alkaline Phosphatase 85 U/L (38-126); Blood Urea Nitrogen 11 mg/dl (7-17); Calcium 9.3 mg/dl (8.4-10.2); Carbon Dioxide 21 mmol/L (22-30); Chloride 110 mmol/L (98-107); Estimated Creatinine Clearance > 125 ml/min; Glucose 78 mg/dl (70-99); Potassium 3.7 mmol/L (3.5-5.1); Sodium 137 mmol/L (135-145); Total Bilirubin 0.3 mg/dl (0.2-1.3); Total Protein 5.5 g/dl (6.3-8.2); eGFR > 60.00
[2023-12-02 07:37] LABS: Glucose - Point of Care 73 mg/dl (70-99)
[2023-12-02] MEDS: HUMULIN N KWIKPEN 16 UNITS SC (07:37)
[2023-12-02] MEDS: NOVOLOG FLEXPEN 4 UNITS SC ×2 (07:39→17:36)
[2023-12-02] MEDS: LOW STRENGTH ASPIRIN 81 MG PO (08:09)
[2023-12-02] MEDS: TRANDATE 100 MG PO ×3 (08:10→22:09)
[2023-12-02] MEDS: KCL 20 MEQ PO (08:10)
[2023-12-02] MEDS: PRENATAL PLUS 1 TABLET PO (08:10)
--- NOTE | 2023-12-02 08:48 | PN.DE.MGMTRT ---
Insulin Management
- -
12/02/2023 Diabetes Management Follow up:
43 year old female EDC 01/19/24, admitted on 11/24 with headache, HTN due to pre eclampsia, scheduled for on 12/08/2023.
PMH includes: Gestational Diabetes Dx ~ 6 weeks ago being seen at [facility]. 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
Patient is awake alert and oriented, in bed resting, states she feels great, able to discuss diabetes treatment.
States that her stress level has significantly gone down knowing that she is being monitored in a safe environment. She is pleased with glucose control.
Received NPH 20 units @ HS FBG 73.
Will make no change to insulin regimen continue Novolin N 16 units in AM and 20 units @ HS with AC NovoLog 4 units with low corrective insulin. Glucose to be monitored before each meal and hs.
Discussed insulin administration with patient and patients nurse.
Diabetes History
- -
Type of Diabetes: Gestational
Pre-Admission Diabetes Regimen
12/02/23
06:11
Creatinine 0.6
Lab Results
Hemoglobin A1c 5.7 % (4.0-5.6) H 11/29/23 06:18
Insulin Pump Settings
IP Diabetes Regimen
12/01/23 12/01/23 12/01/23
11:27 17:36 22:31
Glucose
POC Glucose 79 107 H 115 H
12/02/23 12/02/23
06:11 07:35
Glucose 78
POC Glucose 73
Patient Education
[2023-12-02] MEDS: NOVOLOG FLEXPEN SC (12:00)
[2023-12-02 12:15] LABS: Glucose - Point of Care 67 mg/dl (70-99)
[2023-12-02 17:38] LABS: Glucose - Point of Care 103 mg/dl (70-99)
[2023-12-02 22:06] LABS: Glucose - Point of Care 113 mg/dl (70-99)
[2023-12-02] MEDS: HUMULIN N KWIKPEN 20 UNITS SC (22:10)
[2023-12-03 05:50] LABS: Glucose - Point of Care 79 mg/dl (70-99)
[2023-12-03] MEDS: SYNTHROID 50 MCG PO (05:55)
[2023-12-03] MEDS: HUMULIN N KWIKPEN 16 UNITS SC (07:26)
[2023-12-03] MEDS: LOW STRENGTH ASPIRIN 81 MG PO (07:49)
[2023-12-03] MEDS: TRANDATE 100 MG PO ×3 (07:50→22:05)
[2023-12-03] MEDS: PRENATAL PLUS 1 TABLET PO (07:50)
[2023-12-03] MEDS: KCL 20 MEQ PO (07:50)
[2023-12-03] MEDS: NOVOLOG FLEXPEN 4 UNITS SC ×3 (08:04→17:23)
[2023-12-03 08:11] LABS: Glucose - Point of Care 75 mg/dl (70-99)
[2023-12-03 12:28] LABS: Glucose - Point of Care 88 mg/dl (70-99)
[2023-12-03 17:23] LABS: Glucose - Point of Care 88 mg/dl (70-99)
[2023-12-03 22:06] LABS: Glucose - Point of Care 107 mg/dl (70-99)
[2023-12-03] MEDS: HUMULIN N KWIKPEN 20 UNITS SC (22:08)
[2023-12-04] MEDS: SYNTHROID 50 MCG PO (06:01)
[2023-12-04 06:10] LABS: Glucose - Point of Care 70 mg/dl (70-99)
[2023-12-04 07:51] LABS: Glucose - Point of Care 79 mg/dl (70-99)
[2023-12-04] MEDS: HUMULIN N KWIKPEN 16 UNITS SC (07:59)
[2023-12-04] MEDS: NOVOLOG FLEXPEN SC ×3 (08:00→17:47)
[2023-12-04] MEDS: KCL 20 MEQ PO (08:03)
[2023-12-04] MEDS: PRENATAL PLUS 1 TABLET PO (08:03)
[2023-12-04] MEDS: LOW STRENGTH ASPIRIN 81 MG PO (08:03)
[2023-12-04] MEDS: TRANDATE 100 MG PO ×3 (08:04→21:56)
[2023-12-04 12:33] LABS: Glucose - Point of Care 71 mg/dl (70-99)
[2023-12-04 17:36] LABS: Glucose - Point of Care 88 mg/dl (70-99)
[2023-12-04 22:02] LABS: Glucose - Point of Care 124 mg/dl (70-99)
[2023-12-04] MEDS: HUMULIN N KWIKPEN 20 UNITS SC (22:03)
[2023-12-05] MEDS: SYNTHROID 50 MCG PO (06:00)
[2023-12-05 06:03] LABS: Glucose - Point of Care 75 mg/dl (70-99)
[2023-12-05 06:44] LABS: Hematocrit 37.4 % (37.0-47.0); Mean Corp Hgb Conc. 34.8 g/dL (33.0-37.0); Mean Corpuscular Hgb 30.9 pg (27.0-31.0); Mean Corpuscular Volume 88.8 fL (81.0-99.0); Mean Platelet Volume 11.3 fL (7.4-10.4); Platelet Count 196 10^3/uL (130-400); Red Blood Cell Count 4.21 10^6/uL (4.20-5.40); Red Cell Dist. Width 13.1 % (11.5-14.5); White Blood Cell Count 10.6 10^3/uL (4.8-10.8)
[2023-12-05 07:04] LABS: ALT (SGPT) 24 U/L (0-35); AST (SGOT) 24 U/L (14-36); Albumin 3.2 g/dl (3.5-5.0); Alkaline Phosphatase 103 U/L (38-126); Blood Urea Nitrogen 9 mg/dl (7-17); Calcium 8.8 mg/dl (8.4-10.2); Carbon Dioxide 19 mmol/L (22-30); Chloride 110 mmol/L (98-107); Estimated Creatinine Clearance > 125 ml/min; Glucose 69 mg/dl (70-99); Sodium 133 mmol/L (135-145); Total Bilirubin 0.3 mg/dl (0.2-1.3); Total Protein 6.1 g/dl (6.3-8.2); eGFR > 60.00
[2023-12-05] MEDS: LOW STRENGTH ASPIRIN 81 MG PO (08:03)
[2023-12-05] MEDS: KCL 20 MEQ PO (08:03)
[2023-12-05] MEDS: NOVOLOG FLEXPEN SC ×2 (08:03→18:53)
[2023-12-05] MEDS: PRENATAL PLUS 1 TABLET PO (08:03)
[2023-12-05] MEDS: TRANDATE 100 MG PO ×3 (08:03→22:08)
[2023-12-05] MEDS: HUMULIN N KWIKPEN 16 UNITS SC (08:04)
--- NOTE | 2023-12-05 08:31 | PN.DE.MGMTRT ---
Insulin Management
- -
12/05/2023 Diabetes Management F/U:
43 year old female EDC 01/19/24, admitted on 11/24 with headache, HTN due to pre eclampsia, scheduled for on 12/08/2023.
PMH includes: Gestational Diabetes Dx ~ 6 weeks ago being seen at [facility]. 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
Patient is awake alert and oriented, offers no complaints, resting in bed, able to discuss diabetes treatment.
States that she is eagerly waiting for the arrival of her baby on .
Her glucose remained stable and in range throughout the weekend. Nurse states that AC NovoLog was held yesterday.
Received NPH 20 units @ HS, FBG 69(V) this AM. Will make no change to insulin regimen continue Novolin N 16 units in AM and 20 units @ HS with AC NovoLog 4 units with low corrective insulin. Glucose to be monitored before each meal and hs.
Discussed with Nurse and instructed to give AC NovoLog if premeal glucose >90
Diabetes History
- -
Type of Diabetes: Gestational
Pre-Admission Diabetes Regimen
12/05/23
06:19
Creatinine 0.5 L
Lab Results
Hemoglobin A1c 5.7 % (4.0-5.6) H 11/29/23 06:18
Insulin Pump Settings
IP Diabetes Regimen
12/04/23 12/04/23 12/04/23
12:32 17:35 22:01
Glucose
POC Glucose 71 88 124 H
12/05/23 12/05/23
06:02 06:19
Glucose 69 L
POC Glucose 75
Patient Education
[2023-12-05 12:19] LABS: Glucose - Point of Care 93 mg/dl (70-99)
[2023-12-05] MEDS: NOVOLOG FLEXPEN 4 UNITS SC (12:58)
[2023-12-05 17:34] LABS: Glucose - Point of Care 86 mg/dl (70-99)
[2023-12-05] MEDS: HUMULIN N KWIKPEN 20 UNITS SC (22:14)
[2023-12-05 22:17] LABS: Glucose - Point of Care 120 mg/dl (70-99)
[2023-12-06] MEDS: SYNTHROID 50 MCG PO (06:11)
[2023-12-06 06:16] LABS: Glucose - Point of Care 81 mg/dl (70-99)
[2023-12-06] MEDS: KCL 20 MEQ PO (08:12)
[2023-12-06] MEDS: TRANDATE 100 MG PO ×3 (08:12→22:13)
[2023-12-06] MEDS: LOW STRENGTH ASPIRIN 81 MG PO (08:12)
[2023-12-06] MEDS: PRENATAL PLUS 1 TABLET PO (08:12)
[2023-12-06] MEDS: HUMULIN N KWIKPEN 16 UNITS SC (08:14)
[2023-12-06] MEDS: NOVOLOG FLEXPEN 4 UNITS SC ×3 (08:51→17:23)
--- NOTE | 2023-12-06 09:00 | PN.DE.MGMTRT ---
Insulin Management
- -
12/06/2023 Diabetes Management F/U:
43 year old female EDC 01/19/24, admitted on 11/24 with headache, HTN due to pre eclampsia, scheduled for on 12/08/2023.
PMH includes: Gestational Diabetes Dx ~ 6 weeks ago being seen at [facility]. 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
Patient is awake alert and oriented, offers no complaints, sitting up in bed, able to discuss diabetes treatment.
Glucose remains stable and in range. Nurse states that AC NovoLog was held yesterday.
Received NPH 20 units @ HS, FBG 81(V) this AM.
Will make no change to insulin regimen continue Novolin N 16 units in AM and 20 units @ HS with AC NovoLog 4 units with low corrective insulin.
Glucose to be monitored before each meal and hs.
Diabetes History
- -
Type of Diabetes: Gestational
Pre-Admission Diabetes Regimen
Lab Results
Hemoglobin A1c 5.7 % (4.0-5.6) H 11/29/23 06:18
Insulin Pump Settings
IP Diabetes Regimen
12/05/23 12/05/23 12/05/23
12:17 17:32 22:13
POC Glucose 93 86 120 H
12/06/23
06:14
POC Glucose 81
Patient Education
[2023-12-06 12:22] LABS: Glucose - Point of Care 93 mg/dl (70-99)
--- NOTE | 2023-12-06 14:16 | W.PN.UPDATE ---
Update Note
Progress Note Update
Visited with mother and father today in preparation for planned delivery on 12/08/2023.
Previously had NICU consult with mother.
I discussed resuscitation plan and anticipated NICU course.
Family was given opportunity for questions.
Mother plans on and using donor milk.
We discussed starting to pump as soon as possible after delivery.
We discussed skin to skin time and encouraged family to visit soon after delivery to start skin to skin time.
All questions were addressed.
[2023-12-06 17:28] LABS: Glucose - Point of Care 100 mg/dl (70-99)
[2023-12-06] MEDS: HUMULIN N KWIKPEN 20 UNITS SC (22:11)
[2023-12-06 22:12] LABS: Glucose - Point of Care 108 mg/dl (70-99)
[2023-12-07] MEDS: SYNTHROID 50 MCG PO (05:55)
[2023-12-07 08:02] LABS: Glucose - Point of Care 78 mg/dl (70-99)
[2023-12-07] MEDS: KCL 20 MEQ PO (08:05)
[2023-12-07] MEDS: LOW STRENGTH ASPIRIN 81 MG PO (08:05)
[2023-12-07] MEDS: TRANDATE 100 MG PO ×3 (08:05→22:10)
[2023-12-07] MEDS: PRENATAL PLUS 1 TABLET PO (08:05)
[2023-12-07] MEDS: NOVOLOG FLEXPEN 4 UNITS SC ×3 (08:09→17:39)
[2023-12-07] MEDS: HUMULIN N KWIKPEN 16 UNITS SC (08:10)
--- NOTE | 2023-12-07 09:47 | PN.DE.MGMTRT ---
Insulin Management
- -
12/07/2023 Diabetes Management F/U:
43 year old female EDC 01/19/24, admitted on 11/24 with headache, HTN due to pre eclampsia, scheduled for on 12/08/2023.
PMH includes: Gestational Diabetes Dx ~ 6 weeks ago being seen at [facility]. 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
Patient is awake alert and oriented, offers no complaints, sitting up in bed kneating, able to discuss diabetes treatment.
Glucose remains stable and in range, premeal range 81 to 100, HS 108 and FBG 78 this AM. .
Will make no change to current insulin regimen continue Novolin N 16 units in AM and 20 units @ HS with AC NovoLog 4 units and low corrective insulin.
Pt is scheduled for tomorrow, expect lower insulin requirement during post-.
Will closely follow and adjust insulin doses after delivery.
Diabetes plan of care d/w Pt and Nurse at bedside.
Diabetes History
- -
Type of Diabetes: Gestational
Pre-Admission Diabetes Regimen
Lab Results
Hemoglobin A1c 5.7 % (4.0-5.6) H 11/29/23 06:18
Insulin Pump Settings
IP Diabetes Regimen
12/06/23 12/06/23 12/06/23
12:15 17:22 22:10
POC Glucose 93 100 H 108 H
12/07/23
08:01
POC Glucose 78
Patient Education
[2023-12-07 11:57] LABS: Glucose - Point of Care 93 mg/dl (70-99)
[2023-12-07 17:35] LABS: Glucose - Point of Care 123 mg/dl (70-99)
[2023-12-07 22:30] LABS: Glucose - Point of Care 128 mg/dl (70-99)
[2023-12-07] MEDS: HUMULIN N KWIKPEN 10 UNITS SC (22:37)
[2023-12-08] MEDS: PEPCID 40 MG PO (05:08)
[2023-12-08] MEDS: HUMULIN N KWIKPEN SC (05:10)
[2023-12-08] MEDS: SYNTHROID 50 MCG PO (06:03)
[2023-12-08 06:06] LABS: Glucose - Point of Care 95 mg/dl (70-99)
[2023-12-08 06:29] LABS: Hematocrit 37.9 % (37.0-47.0); Hemoglobin 13.3 g/dL (12.0-16.0); Mean Corp Hgb Conc. 35.1 g/dL (33.0-37.0); Mean Corpuscular Hgb 30.6 pg (27.0-31.0); Mean Corpuscular Volume 87.1 fL (81.0-99.0); Mean Platelet Volume 11.1 fL (7.4-10.4); Platelet Count 204 10^3/uL (130-400); Red Blood Cell Count 4.35 10^6/uL (4.20-5.40); White Blood Cell Count 12.6 10^3/uL (4.8-10.8)
[2023-12-08 07:15] LABS: ALT (SGPT) 21 U/L (0-35); AST (SGOT) 22 U/L (14-36); Albumin 3.4 g/dl (3.5-5.0); Alkaline Phosphatase 111 U/L (38-126); Blood Urea Nitrogen 12 mg/dl (7-17); Calcium 9.5 mg/dl (8.4-10.2); Carbon Dioxide 18 mmol/L (22-30); Chloride 110 mmol/L (98-107); Estimated Creatinine Clearance > 125 ml/min; Glucose 80 mg/dl (70-99); Potassium 4.1 mmol/L (3.5-5.1); Sodium 132 mmol/L (135-145); Total Bilirubin 0.5 mg/dl (0.2-1.3); Total Protein 6.3 g/dl (6.3-8.2); eGFR > 60.00
--- NOTE | 2023-12-08 07:54 | PN.DE.MGMTRT ---
Insulin Management
- -
12/08/2023 Diabetes Management F/U:
43 year old female EDC 01/19/24, admitted on 11/24 with headache, HTN due to pre eclampsia, scheduled for on 12/08/2023.
PMH includes: Gestational Diabetes Dx ~ 6 weeks ago being seen at [facility]. 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
Patient is currently off the floor in OR for scheduled
Glucose remains stable and in range, HS NPH dose was reduced to 10 units, FBG 80 this AM. .
Will closely follow and adjust insulin doses after delivery.
Diabetes History
- -
Type of Diabetes: Gestational
Pre-Admission Diabetes Regimen
12/08/23
06:07
Creatinine 0.6
Lab Results
Hemoglobin A1c 5.7 % (4.0-5.6) H 11/29/23 06:18
Insulin Pump Settings
IP Diabetes Regimen
12/07/23 12/07/23 12/07/23
08:01 11:56 17:34
Glucose
POC Glucose 78 93 123 H
12/07/23 12/08/23 12/08/23
22:25 06:04 06:07
Glucose 80
POC Glucose 128 H 95
Patient Education
[2023-12-08] MEDS: BICITRA 30 ML PO (07:58)
[2023-12-08] MEDS: ANCEF 10 IV (07:58)
[2023-12-08] MEDS: TYLENOL 1000 MG PO (07:58)
[2023-12-08 09:25] LABS: Cord ABG Comment CORD BLOOD
[2023-12-08 09:30] LABS: B.E. Cord ABG -4.1 mMOL/L; PCO2 Cord ABG 61 mmHg; PO2 Cord ABG 20 mmHg; pH Cord ABG 7.22
[2023-12-08 09:35] LABS: HCO3 Cord ABG 23.7 mmol/L; PCO2 Cord ABG 47 mmHg; PO2 Cord ABG 19 mmHg; pH Cord ABG 7.31
[2023-12-08] MEDS: PITOCIN 30 UNITS/NSS 500 ML IV (09:45)
[2023-12-08] MEDS: MAGNESIUM SULFATE 100 IV (10:00)
[2023-12-08] MEDS: LR 1000 IV (10:00)
[2023-12-08] MEDS: MAGNESIUM SULFATE 40 GRAM 1000 IV (10:24)
[2023-12-08] MEDS: REGLAN 10 MG IV (10:30)
[2023-12-08] MEDS: LOW STRENGTH ASPIRIN PO (10:59)
[2023-12-08] MEDS: TRANDATE PO (10:59)
[2023-12-08] MEDS: KCL PO (10:59)
[2023-12-08] MEDS: TRANDATE 100 MG PO ×2 (14:43→22:05)
[2023-12-08] MEDS: TORADOL 15 MG IV ×2 (16:00→22:04)
[2023-12-09] MEDS: LR 1000 IV (01:08)
[2023-12-09] MEDS: TORADOL 15 MG IV ×2 (04:06→09:45)
[2023-12-09] MEDS: MAGNESIUM SULFATE 40 GRAM 1000 IV (04:16)
[2023-12-09] MEDS: SYNTHROID 50 MCG PO (06:21)
[2023-12-09] MEDS: TRANDATE PO (06:21)
[2023-12-09 06:33] LABS: Hematocrit 33.4 % (37.0-47.0); Hemoglobin 11.4 g/dL (12.0-16.0); Mean Corp Hgb Conc. 34.1 g/dL (33.0-37.0); Mean Corpuscular Hgb 30.8 pg (27.0-31.0); Mean Corpuscular Volume 90.3 fL (81.0-99.0); Mean Platelet Volume 10.8 fL (7.4-10.4); Platelet Count 195 10^3/uL (130-400); White Blood Cell Count 17.2 10^3/uL (4.8-10.8)
--- NOTE | 2023-12-09 07:47 | W.PN.ANS.POP ---
Anesthesia Post Operative
- Anesthesia Post Op Note
Vital Signs Stable-See Nursing Note: Yes
Airway Patent: Yes
Adequate Pain Control: Yes
Change in Mental Status: No
Current Postoperative Nausea & Vomiting: No
Anesthesia Complications: No
General Anesthetic Recall: No
Unplanned Admission: No
Post Op Hydration Adequate: Yes
[2023-12-09] MEDS: VITAMIN D3 (cholecalciferol) PO (07:58)
[2023-12-09] MEDS: VISBIOME PO (07:58)
[2023-12-09] MEDS: PRENATAL PLUS 1 TABLET PO (08:50)
[2023-12-09] MEDS: TRANDATE 100 MG PO ×2 (14:01→22:03)
[2023-12-09 14:34] LABS: Syphilis/T. pallidum Ab Reflex Negative (Negative)
[2023-12-09] MEDS: MOTRIN 600 MG PO ×2 (16:02→22:02)
[2023-12-09] MEDS: TYLENOL 650 MG PO ×2 (16:03→22:02)
[2023-12-10] MEDS: SYNTHROID 50 MCG PO (06:05)
[2023-12-10] MEDS: TRANDATE PO (06:32)
[2023-12-10] MEDS: VITAMIN D3 (cholecalciferol) 125 MCG PO (07:49)
[2023-12-10] MEDS: SENOKOT-S 1 TABLET PO (07:49)
[2023-12-10] MEDS: PRENATAL PLUS 1 TABLET PO (07:49)
[2023-12-10] MEDS: MOTRIN 600 MG PO ×3 (07:52→20:54)
[2023-12-10] MEDS: TYLENOL 650 MG PO ×3 (08:06→20:53)
[2023-12-10] MEDS: VISBIOME 1 CAP PO (08:14)
[2023-12-10] MEDS: TRANDATE 100 MG PO ×2 (14:07→21:48)
[2023-12-11] MEDS: TYLENOL 650 MG PO ×3 (03:25→16:11)
[2023-12-11] MEDS: MOTRIN 600 MG PO ×3 (03:26→16:11)
[2023-12-11] MEDS: SYNTHROID 50 MCG PO (06:34)
[2023-12-11] MEDS: TRANDATE 100 MG PO ×3 (06:34→22:12)
[2023-12-11] MEDS: VITAMIN D3 (cholecalciferol) 125 MCG PO (08:38)
[2023-12-11] MEDS: VISBIOME 1 CAP PO (08:38)
[2023-12-11] MEDS: SENOKOT-S 1 TABLET PO (08:38)
[2023-12-11] MEDS: PRENATAL PLUS 1 TABLET PO (08:38)
[2023-12-12] MEDS: MOTRIN 600 MG PO ×2 (03:08→21:00)
[2023-12-12] MEDS: TYLENOL 650 MG PO ×2 (03:09→21:01)
[2023-12-12] MEDS: TRANDATE 100 MG PO ×2 (06:07→06:54)
[2023-12-12] MEDS: SYNTHROID 50 MCG PO (06:08)
[2023-12-12] MEDS: VISBIOME 1 CAP PO (07:28)
[2023-12-12] MEDS: PRENATAL PLUS 1 TABLET PO (07:28)
[2023-12-12] MEDS: SENOKOT-S 1 TABLET PO (07:28)
[2023-12-12] MEDS: VITAMIN D3 (cholecalciferol) 125 MCG PO (07:28)
[2023-12-12] MEDS: TRANDATE 200 MG PO ×2 (13:23→22:11)
[2023-12-13] MEDS: ADALAT 10 MG PO (03:57)
[2023-12-13] MEDS: SYNTHROID 50 MCG PO (05:59)
--- NOTE | 2023-12-13 07:54 | CON.CAR ---
Addendum entered and electronically signed by Rico Lopes MD 12/13/23 11:32:
I saw and examined the patient.
The VICE PRESIDENT OF SOFTWARE DEVELOPMENT's note was reviewed and I agree with the note.
Comment: 43 year old female with dyslipidemia, TERRIE+, hypothyroidism, GDM, and pre-eclampsia who delivered a baby girl via C section 12/08/2023 at 34 weeks gestation due to preeclampsia with severe features. Cardiology is consulted for HTN.
- cont nifedipine and labetalol
- BP after nifedipine appear better controlled
- ECG NSR
- If BP from CV perspective stable OK to d/c with follow up
- F/u recommendations to bring BP log and call if BP > 150 systolic or < 120 systolic
Original Note:
Consultation
Consultation Request
Date/Time Consultation Requested: 12/13/2023 06:40
Date/Time Consultation Performed: 12/13/2023 07:55
Requesting Provider: Dr. Asif
Performing Provider: NADIA Mack for Dr. Lopes
Reason for Consultation: Hypertension
Medical History
-
Chief Complaint: Hypertension
History of Present Illness:
Ericka Floyd is a 43 year old female with dyslipidemia, TERRIE+, hypothyroidism, GDM, and pre-eclampsia who delivered a baby girl via C section 12/08/2023 at 34 weeks gestation due to preeclampsia with severe features. Cardiology is consulted for HTN.
Past Medical History
Past Medical History: Hypothyroidism and Other (GDM, TERRIE+)
Social History
Tobacco: Non-Smoker
Alcohol: None
Drug: None
Personal:
Living: With Family
Family History
Family History: Other (Father with coronary disease.)
Allergies / Home Medications
Allergy/AdvReac Type Severity Reaction Status Date / Time
amoxicillin Allergy Hives Verified 11/25/23 11:38
mold Allergy Hives Verified 11/25/23 11:38
mushroom Allergy Hives Verified 11/25/23 11:38
Penicillins Allergy Unknown Verified 11/25/23 11:38
Sulfa (Sulfonamide Allergy Hives Verified 11/25/23 11:39
Antibiotics)
�Medication �Instructions �Recorded �Confirmed �Type
Probiotic 1 tab PO DAILY Supplement 09/22/23 11/25/23 History
aspirin 81 mg tablet 81 mg PO DAILY Blood Clot 09/22/23 11/25/23 History
Prevention/Tx
cholecalciferol (vitamin D3) 125 1 unit PO DAILY Supplement 09/22/23 11/25/23 History
mcg (5,000 unit) tablet (Vitamin
D3)
levothyroxine 50 mcg tablet 50 mcg PO DAILY@06 Thyroid 09/22/23 12/04/23 History
selenium 200 mg PO DAILY Supplement 09/22/23 11/25/23 History
Humulin N NPH Insulin KwikPen 6 units SC DAILY Diabetes 11/25/23 11/25/23 History
Humulin N NPH Insulin KwikPen 14 units SC HS Diabetes 11/25/23 11/25/23 History
vits no.124-ferrous fum 1 tab PO DAILY Supplement 11/25/23 11/25/23 History
27 mg iron-folic acid 800 mcg
tablet ( Vitamin)
Review of Systems
-
History Source: Patient
All other systems: Negative unless noted
Constitutional: Fatigue
Cardiac: No Symptoms
Neurological: Headache
Physical Exam
Vital Signs
Temp Pulse Resp BP
98.5 F 61 18 173/65
11/25/23 12:33 12/13/23 03:57 11/25/23 12:33 12/13/23 03:57
Lab Results
12/13/23 07:13
12/08/23 06:07
Physical Exam
General: Well Developed, Well Nourished, No Apparent Distress and Comfortable
HEENT: Normocephalic, Anicteric and Moist Mucous Membranes
Respiratory: Clear and Non Labored Respirations
Cardiac: S1/S2 and Regular Rhythm
Breast: Deferred by me
GI: Soft, Non Tender, Non Distended and Normal Bowel Sounds
Rectal: Deferred by Provider
Genito-urinary: No Costovertebral Tender
Musculoskeletal: No Clubbing, No Cyanosis and No Edema
Skin: Warm and Dry
Neuro: AO x 3
Hematologic/Lymphatic: No Lymphadenopathy
Psych: Calm
Impression / Plan
-
Pre-eclampsia with severe features
-C section 12/08/2023 at 34 weeks
-Start Nifedipine XL 30mg, continue Labetalol 200mg TID
-All medications must be safe
GDM, on insulin
Dyslipidemia, this can be addressed in the outpatient setting, LDL last year 174
TERRIE positive
Gregory's thyroiditis on levothyroxine
Data Reviewed
-
Labs: Labs Reviewed by me
Old Records: Reviewed
[2023-12-13] MEDS: TRANDATE 200 MG PO ×3 (08:50→22:10)
[2023-12-13] MEDS: PRENATAL PLUS 1 TABLET PO (08:51)
[2023-12-13] MEDS: VITAMIN D3 (cholecalciferol) 125 MCG PO (08:51)
[2023-12-13] MEDS: VISBIOME 1 CAP PO (08:51)
[2023-12-13] MEDS: PROCARDIA XL (EXTENDED RELEASE) 30 MG PO (10:11)
[2023-12-13] MEDS: TYLENOL 650 MG PO (16:08)
[2023-12-13] MEDS: MOTRIN 600 MG PO (16:08)
--- NOTE | 2023-12-14 03:21 | DOWNTIME ---
There was a [employer] Downtime on 12/13/2023 from 0100 to 12/14/2023 at 0300. Downtime documentation of patient's care, including medication administrations, has been reconciled in the electronic record per guidelines. Refer to the
patient's paper chart under the miscellaneous tab to see printed paper medication records and downtime forms.
[2023-12-14] MEDS: SYNTHROID 50 MCG PO (06:29)
[2023-12-14] MEDS: VISBIOME 1 CAP PO (07:51)
[2023-12-14] MEDS: PRENATAL PLUS 1 TABLET PO (07:51)
[2023-12-14] MEDS: PROCARDIA XL (EXTENDED RELEASE) 30 MG PO (07:52)
[2023-12-14] MEDS: VITAMIN D3 (cholecalciferol) 125 MCG PO (07:52)
[2023-12-14] MEDS: TRANDATE 200 MG PO ×2 (07:52→16:01)
--- NOTE | 2023-12-14 11:40 | W.DS.TRANS ---
DC Summary - [employer]
-
Discharge Instructions:
Instructions:
Stand-Alone Forms:
Changes to Home Medications: No
Discharge Medications:
DC Medications w/original date entered in [employer]
Probiotic 1 tab PO DAILY Supplement 09/22/23
aspirin 81 mg tablet 81 mg PO DAILY Blood Clot Prevention/Tx 09/22/23
cholecalciferol (vitamin D3) 125 mcg (5,000 unit) tablet (Vitamin D3) 1 unit PO DAILY Supplement 09/22/23
levothyroxine 50 mcg tablet 50 mcg PO DAILY@06 Thyroid 09/22/23
selenium 200 mg PO DAILY Supplement 09/22/23
Humulin N NPH Insulin KwikPen 6 units SC DAILY Diabetes 11/25/23
Humulin N NPH Insulin KwikPen 14 units SC HS Diabetes 11/25/23
vits no.124-ferrous fum 27 mg iron-folic acid 800 mcg tablet ( Vitamin) 1 tab PO DAILY Supplement 11/25/23
Home Medication Changes
Pending Results: No
Total time spent discharging patient (in min): 30
--- NOTE | 2023-12-14 11:51 | W.PN.CD ---
Addendum entered and electronically signed by Rico Lopes MD 12/14/23 12:04:
I saw and examined the patient.
The MANAGER PROCUREMENT's note was reviewed and I agree with the note.
Comment: 43 year old female with dyslipidemia, TERRIE+, hypothyroidism, GDM, and pre-eclampsia who delivered a baby girl via C section 12/08/2023 at 34 weeks gestation due to preeclampsia with severe features. Cardiology is consulted for HTN.
- cont nifedipine and labetalol
- f/u as outpatient
- should call if BP systolic > 160 or diastolic > 110
Original Note:
Today's Communication / Plan
-
-If follow-up BP acceptable today, okay for d/c from cardiac perspective on nifedipine 30 mg daily and labetalol 200 mg PO TID, with close monitoring of BP's and follow-up arranged.
Impression / Plan
-
Assessment/plan: 43 year old female with dyslipidemia, TERRIE+, hypothyroidism, GDM, and pre-eclampsia who delivered a baby girl via C section 12/08/2023 at 34 weeks gestation due to preeclampsia with severe features. Cardiology is consulted for HTN.
Pre-eclampsia with severe features:
-C section 12/08/2023 at 34 weeks
-HTN as noted noted -Continue Nifedipine XL 30mg (new med as of yesterday), continue Labetalol 200mg TID- BP mildly elevated this AM prior to meds. If follow-up BP stable, okay for d/c with follow-up with [employer] next week, and us in 2 weeks
(arranged and in chart). She will check daily blood pressures and bring logs to visits, alerting medical team if any BP's severely elevated (>160/110). She also knows s/s that would be concerning and require further evaluation.
Dyslipidemia, this can be addressed in the outpatient setting, LDL last year 174
TERRIE positive
Gregory's thyroiditis on levothyroxine
Subjective: Feeling fine no complaints
Physical Exam
Vital Signs/Labs
Vital Signs
Temp Pulse Resp BP
98.5 F 75 18 155/83
11/25/23 12:33 12/14/23 07:52 11/25/23 12:33 12/14/23 07:52
12/13/23 07:13
12/08/23 06:07
Magnesium Cancelled 11/27/23 05:34
Physical Exam
Constitutional: No acute distress
EENT: Anicteric
Cardiovascular: Rhythm & rate is regular
Respiratory: Respiratory effort normal and Lungs clear to auscul.
Neuro/Psych: AO x 3
Data Reviewed
-
Date of Service: December 14, 2023
== END 2023-12-14 17:03 | disposition home or self-care (01) | DRG 788 ==
LOC: LDRP 11:12
PROVIDERS: Obstetrics & Gynecology; ADMITTING PHYSICIAN Obstetrics & Gynecology; FAMILY PHYSICIAN Family Medicine; OTHER PHYSICIAN Internal Medicine Cardiovascular Disease; OTHER PHYSICIAN Pediatrics Neonatal-Perinatal Medicine
PROC: 10D00Z1 Extraction of Products of Conception, Low, Open Approach (ICD-10-PCS; 2023-12-08)
DX: O14.14 Severe pre-eclampsia complicating childbirth (principal); O32.8XX0 Maternal care for other malpresentation of fetus, not applicable or unspecified; Z3A.32 32 weeks gestation of pregnancy; Z37.0 Single live birth; O99.284 Endocrine, nutritional and metabolic diseases complicating childbirth; E06.3 Autoimmune thyroiditis; O09.813 Supervision of pregnancy resulting from assisted reproductive technology, third trimester; O24.424 Gestational diabetes mellitus in childbirth, insulin controlled; N97.9 Female infertility, unspecified; D25.2 Subserosal leiomyoma of uterus; O34.13 Maternal care for benign tumor of corpus uteri, third trimester; E78.00 Pure hypercholesterolemia, unspecified; E87.6 Hypokalemia; Z79.890 Hormone replacement therapy; Z79.4 Long term (current) use of insulin; Z82.49 Family history of ischemic heart disease and other diseases of the circulatory system; Z88.0 Allergy status to penicillin; Z88.2 Allergy status to sulfonamides; Z91.018 Allergy to other foods; Z79.82 Long term (current) use of aspirin
CPT/HCPCS: 88307; 76805; 76815; 80053; 81003; 82570; 82803; 82962; 83036; 83735; 84100; 84132; 84156; 84550; 85025; 85027; 86780; 86850; 86900; 86901; 87070; 87086; 93005

== ENCOUNTER → 2024-02-09 06:49 | Outpatient (REF) | payer BC, SELFPAY | LOC: HWRAD 06:49 | PROVIDERS: ATTENDING PHYSICIAN Physician Assistant; FAMILY PHYSICIAN Physician Assistant Medical | DX: E04.2 Nontoxic multinodular goiter (principal) | CPT/HCPCS: 76536 ==